=== PATIENT | female | born 1945 | race Caucasian/White ===

== ENCOUNTER → 2016-02-15 | Outpatient (CLI) | payer OTHER ==
--- NOTE | 2016-02-15 09:45 | DX ---
Left Fourth Finger, Three Views Indication: Pain. Evaluate for arthritis. Findings: The anatomically aligned bones are minimally diffusely demineralized. Joint spaces are re latively well preserved. No marginal erosions or osteophytes. No periostitis, periarticular calcifica tion, or chondrocalcinosis. Several small benign degenerative cysts are scattered throughout the carp al bones. Impression: Demineralization. No erosive or productive arthropathy.
== END ==
LOC: BMCIMAGING 09:15
PROVIDERS: ATTEND Physician Assistant
DX: M79.645 Pain in left finger(s) (principal); M85.80 Other specified disorders of bone density and structure, unspecified site

== ENCOUNTER → 2016-02-22 | Outpatient (CLI) | payer OTHER ==
--- NOTE | 2016-02-22 10:35 | MA ---
Screening Digital Mammogram With iCAD Indication: Routine screening. Technique: Standard cephalocaudal and mediolateral oblique projections are obtained. This examinati on was processed with the iCAD computer-aided detection system. Comparison: November 2014, June 2013, and March 2012. Breast density: Type C. Findings: CAD was reviewed. No suspicious microcalcifications, mass, or architectural distortion. Impression: Negative mammogram. BI-RADS 1. Recommendation: Routine screening is recommended in one year, as long as physical examination is jose ign in this patient with moderately dense breast parenchyma. [facility] will send a result letter to the patient. Negative mammography should not preclude additional workup of a clinically suspicious finding. The patient's information is entered into a reminder system with a target due date for her next mammo gram.
== END ==
LOC: BMCIMAGING 08:43
DX: Z12.31 Encounter for screening mammogram for malignant neoplasm of breast (principal)
CPT/HCPCS: G0202